=== PATIENT | male | born 1970 | race Caucasian/White ===

== ENCOUNTER 2023-11-29 04:24 | Observation (INO) ==
[2023-11-29] MEDS: 0.9 % SODIUM CHLORIDE 1,000 ML IV ONE (05:20)
[2023-11-29] MEDS: ONDANSETRON 4 MG/2 ML VIAL IV ONE (05:20)
[2023-11-29] MEDS: KETOROLAC 15 MG/ML VIAL IV ONE (05:25)
[2023-11-29 05:43] LABS: Basophils # (Auto) 0.02 K/mcL (0.00-0.30); Basophils % (Auto) 0.2 % (0.0-2.0); Eosinophils # (Auto) 0.06 K/mcL (0.00-0.70); Eosinophils % (Auto) 0.5 % (0.0-7.0); Hematocrit 42.6 % (40.1-51.0); Hemoglobin 13.9 g/dL (13.7-17.5); Lymphocytes # (Auto) 0.81 K/mcL (1.50-4.80); Lymphocytes % (Auto) 6.1 % (15.5-49.0); Mean Cell Volume 92.4 fL (80.0-100.0); Mean Corpuscular HGB Conc 32.6 g/dL (31.0-36.0); Mean Platelet Volume 9.6 fL (8.8-12.5); Monocytes # (Auto) 1.48 K/mcL (0.10-0.90); Monocytes % (Auto) 11.1 % (1.0-12.0); Neutrophils % (Auto) 81.8 % (38.0-78.0); Platelet Count 271 K/mcL (140-440); RBC 4.61 M/mcL (4.63-6.08); Red Cell Distribution Width 14.1 % (11.5-14.5); WBC 13.3 K/mcL (4.5-11.0)
[2023-11-29 06:16] LABS: ALT/SGPT 10 U/L (<40); AST/SGOT 16 U/L (<40); Albumin 4.1 gm/dL (3.2-5.2); Albumin/Globulin Ratio 1.5 (1.0-2.3); Alkaline Phosphatase 77 U/L (39-117); Bilirubin,Total 0.8 mg/dL (0.1-1.0); Blood Urea Nitrogen 18 mg/dL (6-20); Calcium 9.2 mg/dL (8.6-10.4); Carbon Dioxide 23 mmol/L (22-30); Chloride 102 mmol/L (96-108); Globulin 2.7 gm/dL (2.2-3.7); Glomerular Filtration Rate 70; Glucose 103 mg/dL (70-105); Potassium 4.2 mmol/L (3.3-5.1); Sodium 137 mmol/L (133-145)
[2023-11-29 06:18] LABS: Appearance,Urine Clear (Clear); Bacteria,Urine 0 /hpf (0); Bilirubin,Urine Negative (Negative); Color,Urine Yellow; Culture Indicated,Urine No; Glucose,Urine (UA) Negative (Negative); Ketones,Urine 40 mg/dL (Negative); Leukocyte Esterase,Urine Negative /uL (Negative); Mucus,Urine Few /hpf; Nitrate,Urine Negative (Negative); PH,Urine 5.5 (5.0-9.0); Protein,Urine Trace mg/dL (Negative); Specific Gravity,Urine >= 1.030 (1.000-1.035); Uric Acid Crystals,Urine Few /hpf; Urine Blood Negative ery/mcL (Negative); Urine Hyaline Cast 1 /lph (0-2); Urine RBC < 1 /hpf (0-3); Urine Squamous Epithelial Cell < 1 /hpf (0-4); Urine Transitional Epi Cells < 1 /hpf (0-2); Urine WBC < 1 /hpf (0-4); Urobilinogen,Urine Normal
[2023-11-29] MEDS: morphine 4 MG/ML VIAL IV ONE (06:39)
[2023-11-29] MEDS ORDERED: ONDANSETRON 4 MG/2 ML VIAL IV PRN ×3 (06:52→13:16)
[2023-11-29] MEDS: 0.9 % SODIUM CHLORIDE 1,000 ML IV SCH (08:41)
[2023-11-29] MEDS: morphine 2 MG/ML VIAL IV PRN (09:12)
[2023-11-29] MEDS: ceFAZolin 1 GM VIAL IV SCH (11:13)
[2023-11-29] MEDS ORDERED: PROPOFOL 200 MG/20 ML VIAL IV ONE (11:24)
[2023-11-29] MEDS ORDERED: ROCURONIUM 10 MG/ML ML IV ONE (11:24)
[2023-11-29] MEDS ORDERED: ETOMIDATE 20 MG/10 ML VIAL IV ONE (11:26)
[2023-11-29] MEDS ORDERED: fentaNYL 100 MCG/2 ML VIAL ONE (11:28)
[2023-11-29 11:35] LABS: INR 1.4 (0.9-1.1)
[2023-11-29] MEDS: ceFAZolin 3 GM in DEXTROSE 5% IN WATER 50 ML IV SCH (12:30)
[2023-11-29] MEDS ORDERED: MIDAZOLAM 2 MG/2 ML VIAL ONE (12:47)
[2023-11-29] MEDS: IOVERSOL 50 ML VIAL IJ ONE (12:57)
[2023-11-29] MEDS: GENTAMICIN SULFATE IV SCH (13:02)
[2023-11-29] MEDS: SODIUM CHLORIDE 0.9% IV SCH (13:02)
[2023-11-29] MEDS ORDERED: FLUMAZENIL 0.1 MG/ML ML IV PRN (13:08)
[2023-11-29] MEDS ORDERED: IPRATROPIUM/ALBUTEROL 3 ML AMPUL.NEB NEB PRN (13:08)
[2023-11-29] MEDS ORDERED: NALOXONE HCL 0.4 MG/ML VIAL IV PRN (13:08)
[2023-11-29] MEDS ORDERED: fentaNYL 100 MCG/2 ML VIAL IV PRN (13:08)
[2023-11-29] MEDS ORDERED: SUGAMMADEX SODIUM 200 MG/2 ML VIAL IV ONE (13:14)
[2023-11-29] MEDS: LIDOCAINE 2% URO-JET 10 ML JEL.PF.APP UR ONE (13:14)
[2023-11-29] MEDS ORDERED: HYDROcodone/APAP 5/325MG TABLET PO PRN (13:16)
[2023-11-29] MEDS ORDERED: HYDROmorphone 1 MG/ML SYRINGE IV PRN (13:16)
[2023-11-29] MEDS: 0.9 % SODIUM CHLORIDE 10 ML SYRINGE IV SCH (14:05)
[2023-11-29] MEDS: LACTATED RINGERS 1,000 ML IV SCH (14:05)
== END 2023-11-29 16:56 | disposition home or self-care (01) ==
LOC: MEDSUR 04:24 → ED 04:24 → MEDSUR 08:40
PROVIDERS: ADMIT Urology; ATTEND Urology